=== PATIENT | female | born 1965 | race Caucasian/White ===

== ENCOUNTER 2017-03-03 08:11 | Emergency (ER) | payer BC ==
--- OUTSIDE RECORDS SUMMARY | 2017-03-03 08:25 | XMS REPORT ---
:1965 External Reference #:[id number] Author Organization [facility] Address [address] [facility]/[address] [place] [address] Phone [phone] Care Team Providers Name Role Phone Maureen Michaels MD Care Team Information Customer Logistics Manager Unavailable Maureen Michaels MD Primary Care Physician Unavailable Payers Type Date Identification Numbers Payment Provider Subscriber Commercial Policy Number: [id number] BS [employer] Danny Elana Castro PayID: [id number] [address] [address] [place] [address] Problems Date Description Provider Status Onset: 11/23/2011 Mixed hyperlipidemia Maureen Michaels M.D. Active Onset: 12/26/2014 Tobacco user Maureen Michaels M.D. Active Onset: 12/26/2014 Allergic rhinitis Maureen Michaels M.D. Active Onset: 12/26/2014 Atopic dermatitis Maureen Michaels M.D. 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 ETOH Use Occasionally consumes alcohol Smoking Patient is a current smoker, smokes SMOKES ABOUT HALF-3/4 PACK A every day DAY Daily Caffeine Consumes on average 5-10 cups of regular coffee per day Allergies, Adverse Reactions, Alerts Date Description Reaction Status Severity Comments 05/28/2011 Cipro active 05/28/2011 Biaxin active 05/28/2011 Penicillins active 05/28/2011 Erythromycin active 01/05/2012 Bactrim active Medications Medication Date Status Form Strength Qnty SIG Indications Ordering Provider Oseltamivir 03/01 Hx Capsules 75mg 10cap 1 cap by J09.x9 Brando s mouth twice Ahmad MNiall, - a day M.D. 03/05 Zofran Odt 03/01 Hx Tablets 8mg 30tab 1 by mouth R11.2 [facility], Dispers s every 6 Ahmad M., - hours as M.D. 03/04 needed Hydrocodone-Acetam 03/01 Hx Tablets 5-325mg 60tab 1 tab by J09.x9 Brando , s mouth three Ahmad M., - times a day M.D. 03/06 as needed Prednisone 12/01 Active Tablets 20mg 18tab 3 tab by Brando, s mouth daily Ahmaemelyn MNiall, 3 days, M.D. then 2 tab daily x 3 d , then 1 tab daily 3d Diflucan 12/01 Active Tablets 150mg 2tabs tab one now [facility], June repeat Maureen Osei, in 5 days M.D. Clindamycin HCL 11/30 Hx Capsules 300mg 20cap tab one by J20.8 Brando, s mouth twice Maureen MNiall, - a day M.D. 12/10 Macrodantin 12/06 Hx Capsules 100mg 20cap tab one by Isabella0.Nick Michaels, s mouth twice Lorenamaemelyn MNiall, - a day M.D. 12/17 Methylprednisolone 12/06 Hx Tablets 4mg 1Pak taper as J20.8 Brando, ( directed Maureen Osei - M.D. 12/24 Chantix Starting 12/06 Hx Tablets 0.5mg X QS use as F17.210 Brando, 11 & directed on Maureen Osei, - 1 mg X 42 pack M.D. 11/30 No Active 12/29 Hx Unknown Medications /2013 - 12/06 No Active 09/15 Hx Unknown Medications /2013 - 09/15 Diclofenac Sodium 09/15 Hx Tablets 75mg 60tab take one Brando, DR durham tablet by Maureen Osei, - mouth twice M.D. 11/28 a day with food Ketorolac 08/03 Hx Tablets 10mg 90tab tab one by Brando, s mouth three Maureen Osei, - times a day M.DNiall 09/15 as Doxycycline 04/14 Hx Capsules 100mg 20cap 1 by mouth Brando cl s twice a day Lou Mariano M.D. 04/24 No Active 10/04 Hx Unknown Medications /2012 - 10/04 Carisoprodol 08/17 Hx Tablets 350mg 45tab tab one po 719.41 Brando, s tid Lou Mariano M.D. 08/27 Oxycodone/Acetamin 08/17 Hx Tablets 7.5-325mg 45tab tab one po 719.41 Brando, s tid prn Lou Mariano M.D. 08/22 Azithromycin 07/13 Hx Tablets 250mg 6tabs take two 360.69 Brando tablets by Maureen Osei - mouth karin M.Emiliano 07/17 one dose on the first day then take one daily thereafter x 4 days Lasix 05/04 Hx Tablets 20mg 10tab 1 by mouth Brando, s every day Lou Mariano M.D. 07/13 Tramadol HCL 01/24 Hx Tablets 50mg 45tab 1 po tid 719.47 Brando, s Lou Mariano M.D. 07/13 Doxycycline 01/04 Hx Capsules 100mg 20cap 1 by mouth Brando jasper s twice a day Lou Mariano M.D. 07/13 Bactrim DS 01/03 Hx Tablets 800-160mg 20tab 1 by mouth Brando, s bid Lou Mariano M.D. 01/04 Immunizations CPT Code Status Date Vaccine Lot # [id number] Given 12/26/2014 Flu Vaccine [id number] 20032 Given 12/29/2013 Flu Vaccine [id number] 62389 Given 12/09/2012 Flu Vaccine [id number] Given 12/09/2012 Flu Vaccine [id number] 29425 Given 01/25/2012 Flu Vaccine [id number] 30996 Given 11/12/2010 Flu Vaccine 59781 Given 12/31/2009 Flu Vaccine 73320 Given 11/09/2008 Flu Vaccine 60490 Given 10/31/2001 Td 7 Years And Older [id number] Ordered 12/27/2015 Flu Vaccine Vital Signs Date Vital Result Comment 03/01/2017 BP Systolic 98 mmHg BP Diastolic 58 mmHg Height 67.5 inches 5'7.50" Weight 177.00 lb BMI (Body Mass Index) 27.3 kg/m2 Heart Rate 123 /min Body Temperature 99.3 F Respiratory Rate 16 /min 11/30/2016 BP Systolic 118 mmHg BP Diastolic 68 mmHg Height 67.5 inches 5'7.50" Weight 183.00 lb BMI (Body Mass Index) 28.2 kg/m2 Heart Rate 71 /min Respiratory Rate 18 /min 12/26/2014 BP Systolic 124 mmHg BP Diastolic 76 mmHg Height 67.5 inches 5'7.50" Weight 183.00 lb BMI (Body Mass Index) 28.2 kg/m2 Heart Rate 88 /min Body Temperature 97.1 F Respiratory Rate 16 /min 12/06/2014 BP Systolic 126 mmHg BP Diastolic 78 mmHg Height 67.5 inches 5'7.50" Weight 183.00 lb BMI (Body Mass Index) 28.2 kg/m2 Heart Rate 88 /min Body Temperature 97.7 F Respiratory Rate 16 /min 12/29/2013 BP Systolic 126 mmHg BP Diastolic 78 mmHg Height 67.5 inches 5'7.50" Weight 188.00 lb BMI (Body Mass Index) 29.0 kg/m2 Heart Rate 78 /min Body Temperature 97.9 F Respiratory Rate 16 /min 09/06/2013 BP Systolic 122 mmHg BP Diastolic 76 mmHg Height 67.5 inches 5'7.50" Weight 190.00 lb BMI (Body Mass Index) 29.3 kg/m2 Heart Rate 88 /min Respiratory Rate 16 /min 12/09/2012 BP Systolic 122 mmHg BP Diastolic 76 mmHg Height 67.5 inches 5'7.50" Weight 191.00 lb BMI (Body Mass Index) 29.5 kg/m2 Heart Rate 80 /min Body Temperature 97.1 F Respiratory Rate 16 /min 10/04/2012 BP Systolic 118 mmHg BP Diastolic 70 mmHg Height 67.5 inches 5'7.50" Weight 192.00 lb BMI (Body Mass Index) 29.6 kg/m2 Heart Rate 88 /min Respiratory Rate 16 /min 08/17/2012 BP Systolic 122 mmHg BP Diastolic 84 mmHg Height 67.5 inches 5'7.50" Weight 193.00 lb BMI (Body Mass Index) 29.8 kg/m2 Heart Rate 82 /min Respiratory Rate 18 /min 07/13/2012 BP Systolic 120 mmHg BP Diastolic 72 mmHg Height 67.5 inches 5'7.50" Weight 192.00 lb BMI (Body Mass Index) 29.6 kg/m2 Heart Rate 90 /min Respiratory Rate 20 /min 01/25/2012 BP Systolic 122 mmHg BP Diastolic 68 mmHg Height 67.5 inches 5'7.50" Weight 189.00 lb BMI (Body Mass Index) 29.2 kg/m2 Heart Rate 80 /min Body Temperature 97.7 F Respiratory Rate 16 /min Results Test Date Test Result H/L Range Note CMP 10/04/2012 Sodium 140 mmol/L (136-145) Potassium 4.3 mmol/L (3.6-5.2) Chloride 107 mmol/L (100-108) Co2 26 mmol/L (22-31) Anion Gap 7 mmol/L (7-16) Urea Nitrogen 13 mg/dL (7-24) Creatinine 0.8 mg/dL (0.6-1.0) BUN/Creat Ratio 16.3 RATIO (10.0-20.0) Glucose 86 mg/dL (70-99) Calcium 9.2 mg/dL (8.4-10.2) Total Protein 7.0 g/dL (6.4-8.2) Albumin 4.0 g/dL (3.5-4.6) Globulin 3.0 g/dL (2.7-4.3) Alb/Glob Ratio 1.3 RATIO Alkaline Phosphatase 66 U/L (50-136) Bilirubin,Total 0.4 mg/dL (0.0-1.0) Ast (Sgot) 19 U/L (11-39) Alt (SGPT) 44 U/L (12-78) 1 GFR 83 ML/MIN/1.73M2 (>59) GFR ( Amer) >90 ML/MIN/1.73M2 (>59) GFR Interpretation <SEE NOTE> 2 CBC With Diff 10/04/2012 WBC 12.3 K/UL High (4.1-11.0) RBC 4.47 M/UL (4.00-5.40) HGB 14.3 GM/DL (12.0-16.0) HCT 42.2 % (36.0-47.0) MCV 94.5 FL (80.0-95.0) MCH 32.0 pg (27.0-32.0) MCHC 33.9 g/dL (32.0-36.0) RDW 12.3 % (10.5-14.5) PLT 375 K/UL (150-400) MPV 8.6 FL (7.1-10.7) Neut % 55.0 % (35.0-75.0) Lymph % 34.8 % (16.0-52.0) Dubois % 7.8 % (0-8.0) Eos % 1.5 % (0-5.0) Baso % 0.9 % (0-4.0) Neut # 6.8 K/UL (1.8-7.7) Lymph # 4.3 K/UL (1.2-4.8) Dubois # 1.0 K/UL High (0-0.8) Eos # 0.2 K/UL (0-0.5) Baso # 0.1 K/UL (0-0.2) Protime 10/04/2012 PT 10.5 SEC (9.2-11.9) Inr 0.95 3 1 NOTE: NEW [facility] METHOD AND REFERENCE RANGE EFFECTIVE 12 2 NORMAL KIDNEY FUNCTION OR MILD DISEASE - GFR >OR=60 CHRONIC KIDNEY DISEASE - GFR 15 - 59 RENAL FAILURE - GFR <15 Est. GFR calculation based on the MDRD study equation, which assumes a steady state for creatinine. Est. GFR should not be used for medication dosing. 3 SUGGESTED THERAPEUTIC RANGES USING INR FOR STABILIZED ANTICOAGULATED PATIENTS: STANDARD DOSE THERAPY INR 2.0-3.0 DVT, PE, PREVENT DVT OR EMBOLISM HIGH DOSE THERAPY INR 2.5-3.5 PREVENT EMBOLISM FROM MECHANICAL HEART VALVE Procedures Date CPT Code Description Status 10/04/2012 16230 EKG Completed 07/13/2012 30156 Incision And Removal Foreign Body, Subcutaneous Tissue; Completed Simple 04/02/2011 96242 Tympanometry Completed 11/26/2009 83115 Spirometry Completed 11/26/2009 92647 Tympanometry Completed 04/22/2009 19465 Spirometry Completed 04/22/2009 79705 Tympanometry Completed 12/26/2007 44547 Spirometry Before/After Brochodilator Completed 01/10/2007 07423 Tympanometry Completed 04/12/2006 12710 Tympanometry Completed 03/06/2005 70872 Tympanometry Completed 12/17/2004 65039 Tympanometry Completed 11/17/2004 89024 Tympanometry Completed 02/15/2004 32126 Tympanometry Completed Encounters Type Date Location Provider CPT E/M Dx Office Visit 03/01/2017 10:30a Maureen Corona M.D. 48510 L20.9 J30.9 J44.9 F17.210 J09.x9 R05 R06.02 R09.81 R11.2 R19.7 Office Visit 11/30/2016 2:45p [place] [facility] Alex Mckeon [facility] 02178 F17.210 R05 J20.8 Office Visit 12/26/2014 10:00a Maureen Corona M.D. 21331 L20.9 J30.2 Z23 F17.210 Office Visit 12/06/2014 2:15p Alex Zayas [facility] 36250 F17.200 R05 R07.1 J20.8 R61 Office Visit 12/29/2013 11:45a Alex Zayas [employer] 63602 305.1 V04.81 Office Visit 09/06/2013 3:00p Alex Zayas [facility] 53350 305.1 782.3 356.8 305.1 Office Visit 12/09/2012 10:30a Alex Zayas 15336 V04.81 305.1 Office Visit 10/04/2012 4:00p Alex Zayas [facility] 33485 719.41 V72.84 Office Visit 08/17/2012 9:45a [facility] Alex Mckeon [facility] 30981 719.41 724.1 723.1 Office Visit 01/25/2012 2:00p Alex Zayas [facility] 12117 719.47 719.41 724.1 723.1 724.2 V04.81 Office Visit 04/02/2011 11:45a [facility] Maureen Michaels M.D. 97550 382.9 466.0 786.2 462 Office Visit 12/15/2010 4:45p Alex Zayas [facility] 87707 786.2 461.8 465.9 462 Office Visit 11/12/2010 5:00p Maureen Corona M.D. 46034 448.1 V04.81 Office Visit 08/01/2010 4:15p Maureen Corona M.D. 75666 401.1 272.2 782.3 719.41 Office Visit 06/17/2010 11:30a [facility] Maureen Michaels M.D. 95067 719.41 847.0 840.8 723.1 Office Visit 03/14/2010 2:15p Maureen Corona M.D. 39439 382.9 786.2 478.19 461.8 Office Visit 12/31/2009 4:30p Tisha Mckeon Alex [employer] 25929 V04.81 Office Visit 11/26/2009 2:00p [facility] Maureen Michaels M.D. 24516 382.9 784.0 491.21 461.8 Office Visit 05/17/2009 2:15p Maureen Corona M.D. 14777 466.0 786.2 461.8 300.00 Office Visit 04/22/2009 10:00a [facility] Maureen Michaels M.D. 08391 786.05 491.21 578.9 381.04 300.00 Office Visit 03/07/2009 3:45p Alex Zayas [facility] 73613 786.05 786.2 461.8 465.9 Office Visit 11/09/2008 4:30p Maureen Corona M.D. 11669 466.0 786.2 V04.81 Office Visit 2008 2:30p Maureen Corona M.D. 87463 466.0 786.2 478.19 847.1 Plan of Care 03/01/2017 - Maureen Michaels M.D.L20.9 Atopic dermatitis, unspecifiedComments: SKIN CARE INSTRUCTIONS LOTION OR BABY OIL 2-3 APPLICATION PER DAYUSE MOISTURIZING SOAPAVOID PROLONGED WATER EXPOSUREAVOID USING HOT WATER IN PXSLZKW43.9 Allergic rhinitis, unspecifiedComments:INCREASE PO FLUID USE ANTIHISTAMINE PRN SECOND HAND SMOKING AVOIDANCE SMOKING BWLDGSJPRO51.9 Chronic obstructive pulmonary disease, unspecifiedComments:INCREASE PO FLUIDRESTSMOKING DYNITXRKQM07.210 Nicotine dependence, cigarettes, uncomplicatedComments:SMOKING CESSATION [id number].x9 Flu due to ident novel influenza A virus w oth manifestNew Medication:Oseltamivir Phosphate 75 mgHydrocodone-Acetaminophen 5- 325 mgComments:OBSEREVINCREASE PO FLUIDTYLENOL OR MOTRIN PRNR05 CoughComments: INCREASE CLEAR LIQUIDSSTEAMGARGLE WARM SALT H2O TID ROBITUSSIN DM PRNR06.02 Shortness of breathComments:INCREASE PO IXIMIONHXE14.81 Nasal congestionComments :INCREASE PO FLUIDTYLENOL OR MOTRIN PRNREST USE ANTIHISTAMINE PRNR11.2 Nausea with vomiting, unspecifiedNew Medication:Zofran Odt 8 mgComments:INCREASE PO FLUID GAYLA DIETR19.7 Diarrhea, unspecifiedComments:INCREASE PO FLUID DIET REVIEW GAYLA DIET PRNIMMODIUM PRN
[2017-03-03] MEDS ORDERED: NS 0.9% 1000 ML* 1,000 ML IV ONE (09:04)
[2017-03-03] MEDS ORDERED: Ondansetron INJ* 2 MG/ML VIAL IV ONE (09:07)
--- NOTE | 2017-03-03 09:10 | UC ---
FLU HPI - HPI Summary HPI Summary: Pt presents to with her . Pt states Wednesday was in usual state of health. Pt states starting Wednesday evening develop fever, cough, vomiting and body aches. Pt states has intermittently taken Tylenol but vomit. Pt states saw PCP on Wednesday who presumptive started on her Tamiflu, hydrocodone for pain and zofran. Pts tates has continued to vomit and is not able to keep any of these medications down. pt states since wed also has posterior HEMPHILL. No rash. No vision changes. No diarrhea. + diffuse abdominal pain. Pt reports some blood when she coughs / vomits, no clots unsure if hematemesis or hemotypsus Pt's medications reviewed this visit - History of Current Complaint Chief Complaint: UCRespiratory Stated Complaint: HEMPHILL FEVER ACHY VOMITING Time Seen by Provider: 03/03/17 08:54 Hx Obtained From: Patient, Family/[employer] Hx Last Menstrual Period: n/a Onset/Duration: Gradual Onset Severity Currently: Moderate Severity Initially: Severe Pain Intensity: 7 Associated Signs & Symptoms: Positive: Fever, T Max - 105 yesterday, Myalgia, Cough, Nasal Congestion, Headache, Vomiting, Diarrhea - Allergy/Home Medications Allergies/Adverse Reactions: Allergies Allergy/AdvReac Type Severity Reaction Status Date / Time Erythromycin Allergy Severe Hives Verified 03/03/17 08:42 Sulfamethoxazole Allergy Severe Hives Verified 03/03/17 08:42 w/Trimethoprim [From Bactrim] Penicillins Allergy Hives Verified 03/03/17 08:42 PMH/Surg Hx/FS Hx/Imm Hx Previously Healthy: Yes - Surgical History Surgical History: Yes Surgery Procedure, Year, and Place: ,. RT ANKLE LIGAMENT REPAIR,. T& A & SINUS,. TUBAL,. right shoulder,. ablation, uterine - Family History Known Family History: Positive: None - Social History Lives: With Family Alcohol Use: Occasionally Substance Use Type: None Smoking Status (MU): Heavy Every Day Tobacco Smoker Type: Cigarettes Amount Used/How Often: ~ 1/2 ppd Length of Time of Smoking/Using Tobacco: started ~ age 19 - Immunization History Most Recent Influenza Vaccination: Fall 2014 Review of Systems Constitutional: Fever, Chills, Fatigue ENT: Sore Throat, Ear Ache, Nasal Discharge, Sinus Congestion Respiratory: Cough Cardiovascular: Negative Gastrointestinal: Vomiting, Diarrhea, Nausea Musculoskeletal: Arthralgia, Myalgia Neurological: Headache, Weakness Is Patient Immunocompromised?: No All Other Systems Reviewed And Are Negative: Yes Physical Exam Triage Information Reviewed: Yes Appearance: Pain Distress, Other: - pallor, vomiting, uncomfortable ambulation Vital Signs: Initial Vital Signs Temp 99 F 03/03/17 08:20 Pulse 92 03/03/17 08:20 Resp 20 03/03/17 08:20 BP 102/46 03/03/17 08:20 Pulse Ox 96 03/03/17 08:20 Eyes: Positive: Other: - eyes sunken ENT: Positive: Other - turbinates inflammed mmdry and pasty Neck exam: Normal Neck: Positive: Supple, Nontender, No Lymphadenopathy Respiratory: Positive: Chest non-tender, Lungs clear, Normal breath sounds, No respiratory distress, No accessory muscle use, Other: - intermittent coarse cough Cardiovascular Exam: Normal Cardiovascular: Positive: RRR, No Murmur, Pulses Normal Abdominal Exam: Normal Abdomen Description: Positive: No Organomegaly, Soft, Bruit. Negative: Nontender - diffuse abdominal pain, no guarding, no rebound Bowel Sounds: Positive: Present Neurological Exam: Normal Neurological: Positive: Alert Psychological Exam: Normal Skin: Positive: Other - pallor Flu Course/Dx - Course Course Of Treatment: pt presents with 5 days of fever, body aches and noause, vomiting uncontroleld by zofran. Pt symptomatic dx with influenza, but unable to keep tamiflu down. Pt will appear, walkes uncomfortable holding head. Pt activity vomiting. d/w pt and at length. will place IV. IVF. zofran. bg. rapid flu. transfer to ED by EMS - pt comfortable and in agreement with plan. Pt request [facility]. Pt's flu neg A+B. spoke with Chasity Barrera NP [facility] - accepting pt. - Differential Dx/Diagnosis Provider Diagnoses: vomiting, hydration, headache Discharge - Discharge Plan Condition: Good Disposition: TRANS HIGHER LVL OF CARE FAC Referrals: [facility] [Primary Care Provider] -
[2017-03-03 09:45] VITALS: BP 101/40
== END 2017-03-03 09:39 | disposition short-term general hospital (02) ==
LOC: UCCORT 08:11
DX: R11.10 Vomiting, unspecified (principal); R51 Headache; E86.0 Dehydration; M79.1 Myalgia; R05 Cough; R09.81 Nasal congestion; R19.7 Diarrhea, unspecified; Z88.1 Allergy status to other antibiotic agents; Z88.0 Allergy status to penicillin; Z88.2 Allergy status to sulfonamides; F17.210 Nicotine dependence, cigarettes, uncomplicated
CPT/HCPCS: 87502; 96374; 99213; G0463; J2405